=== PATIENT | male | born 1995 | race African-American/Black ===

== ENCOUNTER 2018-05-18 19:11 | Emergency (ER) | payer OTHER ==
[2018-05-18 19:34] VITALS: BP 158/99; PULSE 68; TEMP 97.9; BMI 48.1
--- NOTE | 2018-05-18 20:02 | PDOC ---
History of Present Illness - General Chief Complaint: Injury Stated Complaint: TOE INJURY Time Seen by Provider: 05/18/18 19:37 History Source: Patient Exam Limitations: Clinical Condition - History of Present Illness Initial Comments: 05/18/18 19:56 Patient with history of diabetes presenting with pain of pain to left big toe with complete evulsion of the toenail after dropping a couch on the toe 3 days ago. Patient reported he didn't come earlier because he had to something to do . he denies pain to toe today. Patient denied any other symptoms Timing/Duration: other (3 days) Past History - Past Medical History Allergies/Adverse Reactions: Allergies Allergy/AdvReac Type Severity Reaction Status Date / Time No Known Allergies Allergy Verified 04/15/18 19:08 Home Medications: Ambulatory Orders Amlodipine Besylate [Norvasc -] 5 mg PO DAILY #7 tablet 04/15/18 Mupirocin Ointment [Bactroban 2% Ointment -] 1 applic TP BID #1 tube 05/18/18 Sulfamethoxazole/Trimethoprim [Bactrim Ds -] 1 tab PO BID #14 tablet 05/18/18 COPD: No Diabetes: Yes HTN: Yes - Immunization History Immunization Up to Date: Yes - Suicide/Smoking/Psychosocial Hx Smoking Status: No Smoking History: Never smoked Have you smoked in the past 12 months: No Number of Cigarettes Smoked Daily: 0 Information on smoking cessation initiated: No Hx Alcohol Use: No Drug/Substance Use Hx: No Substance Use Type: None Review of Systems - Review of Systems Able to Perform ROS?: Yes Is the patient limited Swazi proficient: No Constitutional: No: Chills, Diaphoresis, Fever, Loss of Appetite, Malaise, Night Sweats, Weakness, Weight Stable, Unintentional Wgt. Loss, Unexplained wgt Loss, Other HEENTM: No: Eye Pain, Blurred Vision, Tearing, Recent change in vision, Double Vision, Cataracts, Ear Pain, Ocular Prothesis, Ear Discharge, Nose Pain, Nose Congestion, Tinnitus, Nose Bleeding, Hearing Loss, Throat Pain, Throat Swelling , Mouth Pain, Dental Problems, Difficulty Swallowing, Mouth Swelling, Other Respiratory: No: Cough, Orthopnea, Shortness of Breath, SOB with Exertion, SOB at Rest, Stridor, Wheezing, Productive cough, Hemoptysis, Other Cardiac (ROS): No: Chest Pain, Edema, Irregular Heart Rate, Lightheadedness, Palpitations, Syncope, Chest Tightness, Other ABD/GI: No: Abdominal Distended, Abd. Pain w/ defecation, Blood Streaked Bowels , Constipated, Diarrhea, Difficulty Swallowing, Nausea, Poor Appetite, Poor Fluid Intake, Rectal Bleeding, Vomiting, Indigestion, Abdominal cramping, Tarry Stools, Other Musculoskeletal: Yes: See HPI Integumentary: Yes: See HPI All Other Systems: Reviewed and Negative *Physical Exam - Vital Signs Last Vital Signs Temp Pulse Resp BP Pulse Ox 97.9 F 68 18 158/99 100 05/18/18 19:30 05/18/18 19:30 05/18/18 19:30 05/18/18 19:30 05/18/18 19:30 - Physical Exam Comments: 05/18/18 20:05 GENERAL: Well developed, well nourished. Awake and alert. No acute distress. HEENT: Normocephalic, atraumatic. PERRLA, EOMI. No conjunctival pallor. Sclera are non- icteric. Moist mucous membranes. Oropharynx is clear. NECK: Supple. Full ROM. No JVD. Carotid pulses 2+ and symmetric, without bruits. No thyromegaly. No lymphadenopathy. CARDIOVASCULAR: Regular rate and rhythm. No murmurs, rubs, or gallops. Distal pulses are 2+ and symmetric. PULMONARY: No evidence of respiratory distress. Lungs clear to auscultation bilaterally. No wheezing, rales or rhonchi. ABDOMINAL: Soft. Non-tender. Non-distended. No rebound or guarding. No organomegaly. Normoactive bowel sounds. MUSCULOSKELETAL Normal range of motion at all joints. No bony deformities or tenderness. No CVA tenderness. EXTREMITIES: No cyanosis. No clubbing. No edema. No calf tenderness. SKIN: complete avulsion of toenail of left big toe. No bleeding from sites and no drainage or erythema to site NEUROLOGICAL: Alert, awake, appropriate. Cranial nerves 2-12 intact. No deficits to light touch and temperature in face, upper extremities and lower extremities. No motor deficits in the in face, upper extremities and lower extremities. Normoreflexic in the upper and lower extremities. Normal speech. Toes are down- going bilaterally. Gait is normal without ataxia. PSYCHIATRIC: Cooperative. Good eye contact. Appropriate mood and affect. General Appearance: Yes: Nourished, Appropriately Dressed. No: Apparent Distress Medical Decision Making - Medical Decision Making 05/18/18 19:58 Patient presenting with complete evulsion of toenail of left big toe drop in the couch on the toe. no evidence of bleeding from toe or toenail. Patient moving to wound were no evidence of fracture on exam. Will defer x-ray given it would not change the management plan .wound cleaned with Betadine and bacitracin applied to wound. Wound covered with adhesive bandage .Patient will be discharged on outpatient treatment with antibiotics with podiatry follow-up 05/18/18 20:07 *DC/Admit/Observation/Transfer Diagnosis at time of Disposition: Toenail avulsion Qualifiers: Encounter type: initial encounter Qualified Code(s): S91.209A - Unspecified open wound of unspecified toe(s) with damage to nail, initial encounter - Discharge Dispostion Disposition: HOME Condition at time of disposition: Good Decision to Admit order: No - Prescriptions Prescriptions: Mupirocin Ointment [Bactroban 2% Ointment -] 1 applic TP BID #1 tube Sulfamethoxazole/Trimethoprim [Bactrim Ds -] 1 tab PO BID #14 tablet - Referrals Referrals: Castillo Alvarado MD [Staff Physician] - - Patient Instructions Printed Discharge Instructions: DI for Nail Avulsion Injury Additional Instructions: Take medications as prescribed. Apply topical cream twice a day to wound on the healed. Follow-up with podiatry - Post Discharge Activity
== END 2018-05-18 20:04 | disposition home or self-care (01) ==
LOC: JERFT 19:11
DX: S91.202A Unspecified open wound of left great toe with damage to nail, initial encounter (principal); W20.8XXA Other cause of strike by thrown, projected or falling object, initial encounter; Y93.89 Activity, other specified; Y92.038 Other place in apartment as the place of occurrence of the external cause; Y99.8 Other external cause status; I10 Essential (primary) hypertension; E10.9 Type 1 diabetes mellitus without complications
CPT/HCPCS: 99281-25

== ENCOUNTER 2019-08-10 15:21 | Emergency (ER) | payer OTHER ==
[2019-08-10 15:26] VITALS: BP 160/99; PULSE 98; TEMP 99
[2019-08-10 16:05] VITALS: BMI 45.6
--- NOTE | 2019-08-10 16:20 | PDOC ---
History of Present Illness - General Chief Complaint: Pain Stated Complaint: CHEST PAIN Time Seen by Provider: 08/10/19 15:30 History Source: Patient Exam Limitations: Clinical Condition - History of Present Illness Initial Comments: 08/10/19 16:13 Morbid obese patient with history of hypertension and diabetes noncompliant with medication for over a year now presents with parent with complaint of midsternal chest pain upon waking this morning. Patient RN report she was visiting patient today who lives with her brother and patient felt of as patient did not want to clean the house as he usually does. Patient's aunt reported she was unable to reach his brother so she brought the patient to the emergency room. Patient denies shortness of breath, palpitation, numbness or tingling sensation, nausea or vomiting. Denies dizziness, headache, blurred vision change in vision. Patient report he has not taken his diabetes or blood pressure medication in over a year. Patient is not sure of his own blood pressure medication but thinks he takes Tylenol for blood pressure control. He denies any other symptoms. Patient does not know patient's history and could not give history of patient's home medication Is this a multiple visit Asthma Patient?: No Timing/Duration: momentarily Past History - Past Medical History Allergies/Adverse Reactions: Allergies Allergy/AdvReac Type Severity Reaction Status Date / Time No Known Allergies Allergy Verified 08/10/19 15:26 Home Medications: Ambulatory Orders Amlodipine Besylate [Norvasc -] 5 mg PO DAILY #7 tablet 04/15/18 Mupirocin Ointment [Bactroban 2% Ointment -] 1 applic TP BID #1 tube 05/18/18 Sulfamethoxazole/Trimethoprim [Bactrim Ds -] 1 tab PO BID #14 tablet 05/18/18 COPD: No Diabetes: Yes HTN: Yes - Immunization History Immunization Up to Date: Yes - Psycho Social/Smoking Cessation Hx Smoking Status: No Smoking History: Never smoked Have you smoked in the past 12 months: No Number of Cigarettes Smoked Daily: 0 Hx Alcohol Use: No Drug/Substance Use Hx: No Substance Use Type: None Review of Systems - Review of Systems Able to Perform ROS?: Yes Is the patient limited Sammarinese proficient: No Constitutional: No: Chills, Fever, Weakness HEENTM: No: Symptoms Reported, See HPI, Eye Pain, Blurred Vision, Tearing, Recent change in vision, Double Vision, Cataracts, Ear Pain, Ocular Prothesis, Ear Discharge, Nose Pain, Nose Congestion, Tinnitus, Nose Bleeding, Hearing Loss , Throat Pain, Throat Swelling, Mouth Pain, Dental Problems, Difficulty Swallowing, Mouth Swelling, Other Respiratory: No: Symptoms reported, See HPI, Cough, Orthopnea, Shortness of Breath, SOB with Exertion, SOB at Rest, Stridor, Wheezing, Productive cough, Hemoptysis, Other Cardiac (ROS): Yes: Symptoms Reported, See HPI, Chest Pain (mid-sternum chest pain). No: Edema, Irregular Heart Rate, Lightheadedness, Palpitations, Syncope , Chest Tightness, Other ABD/GI: No: Nausea, Vomiting Neurological: No: Symptoms reported, Headache, Numbness, Paresthesia, Seizure, Tingling All Other Systems: Reviewed and Negative *Physical Exam - Vital Signs Last Vital Signs Temp Pulse Resp BP Pulse Ox 99.0 F 98 H 18 160/99 97 08/10/19 15:23 08/10/19 15:23 08/10/19 15:23 08/10/19 15:23 08/10/19 15:23 - Physical Exam Comments: 08/10/19 16:22 GENERAL: Well developed, well nourished. Awake and alert. Morbidly obese in no acute distress. HEENT: Normocephalic, atraumatic. PERRLA, EOMI. No conjunctival pallor. Sclera are non-icteric. Moist mucous membranes. Oropharynx is clear. NECK: Supple. Full ROM. CARDIOVASCULAR: Regular rate and rhythm. No murmurs, rubs, or gallops. Distal pulses are 2+ and symmetric. PULMONARY: No evidence of respiratory distress. Lungs clear to auscultation bilaterally. No wheezing, rales or rhonchi. ABDOMINAL: Soft. Non-tender. Non-distended. No rebound or guarding. No organomegaly. Normoactive bowel sounds. MUSCULOSKELETAL Normal range of motion at all joints. Mild reproducible upper midsternal subjective pain. EXTREMITIES: No cyanosis. No clubbing. No edema. No calf tenderness. SKIN: Warm and dry. Normal capillary refill. No rashes. No jaundice. NEUROLOGICAL: Alert, awake, appropriate. Gait is normal without ataxia. PSYCHIATRIC: Cooperative. Good eye contact. Appropriate mood General Appearance: Yes: Nourished, Appropriately Dressed. No: Apparent Distress ED Treatment Course - LABORATORY CBC & Chemistry Diagram: 08/10/19 16:30 08/10/19 16:30 - RADIOLOGY Radiology Studies Ordered: Category Date Time Status CHEST PA & LAT [RAD] Stat Radiology 08/10/19 15:52 Ordered Medical Decision Making - Medical Decision Making 08/10/19 16:20 Morbid obese patient with history of hypertension and diabetes noncompliant with medication for over a year now presents with parent with complaint of midsternal chest pain upon waking this morning. Patient RN report she was visiting patient today who lives with her brother and patient felt of as patient did not want to clean the house as he usually does. Patient's aunt reported she was unable to reach his brother so she brought the patient to the emergency room. Patient denies shortness of breath, palpitation, numbness or tingling sensation, nausea or vomiting. Denies dizziness, headache, blurred vision change in vision. Patient report he has not taken his diabetes or blood pressure medication in over a year. Patient is not sure of his own blood pressure medication but thinks he takes Tylenol for blood pressure control. He denies any other symptoms. Patient does not know patient's history and could not give history of patient's home medication Exam significant for morbidly obese patient in no acute distress. Mild subjective midsternal chest pain on exam. Normal cardiac exam. Lungs clear to auscultation bilateral. EKG shows normal sinus rhythm. Given patient being a poor historian, will do cardiac profile and basic lab with chest x-ray to rule out acute chest pathology 08/10/19 17:01 Chest x-ray shows no acute infiltrate or pathology. CBC normal. Cardiac profile negative. Patient symptoms likely costochondritis and stable for discharge to take Motrin as needed for pain. Patient advised to follow-up with PCP for blood pressure and diabetes control. Referral given to internal medicine for follow-up and advised patient on importance of medication compliance with her diabetes and blood pressure. 08/10/19 17:07 Patient is asymptomatic and stable for discharge Discharge - Discharge Information Problems reviewed: Yes Clinical Impression/Diagnosis: Costochondral chest pain, Essential hypertension, Morbid obesity Condition: Stable Disposition: HOME - Admission No - Follow up/Referral Referrals: Hayden Banegas MD [Staff Physician] - - Patient Discharge Instructions Additional Instructions: Your EKG, chest x-ray and labs is normal. Your symptoms likely caused by muscle pain. Follow-up referred to internal medicine for management of the blood pressure and diabetes. It is very important that you get your blood pressure under control and also your weight down as it will affect your health if not manage. - Post Discharge Activity
[2019-08-10 16:38] LABS: EOS % 1.1 % (0-4.5); HEMATOCRIT 39.3 % (35.4-49); HEMOGLOBIN 13.2 GM/dL (11.7-16.9); LYMPH % 32.7 % (8-40); MCH 25.7 pg (25.7-33.7); MCHC 33.5 g/dl (32.0-35.9); MEAN CELL VOLUME 76.8 fl (80-96); MEAN PLT VOLUME 8.7 fl (7.5-11.1); NEUT % 54.2 % (42.8-82.8); PLATELET COUNT 287 K/MM3 (134-434); RBC 5.12 M/mm3 (4.00-5.60); RDW 14.2 % (11.9-15.9)
[2019-08-10 17:07] LABS: ALBUMIN 3.8 g/dl (3.4-5.0); ALK PHOS 58 U/L (45-117); ANION GAP 6 MMOL/L (8-16); BILIRUBIN,TOTAL 0.4 mg/dL (0.2-1); BLOOD UREA NITROGEN 15.6 mg/dL (7-18); CALCIUM 9.2 mg/dL (8.5-10.1); CHLORIDE 107 mmol/L (98-107); CO2 28 mmol/L (21-32); CREATININE 1.1 mg/dL (0.55-1.3); GLUCOSE,RANDOM 127 mg/dL (74-106); SGOT/AST 15 U/L (15-37); SGPT/ALT 24 U/L (13-61); SODIUM 141 mmol/L (136-145)
--- NOTE | 2019-08-11 12:56 | EKG ---
Test Reason : Blood Pressure : / mmHG Vent. Rate : 079 BPM Atrial Rate : 079 BPM P-R Int : 150 ms QRS Dur : 096 ms QT Int : 358 ms P-R-T Axes : 069 062 049 degrees QTc Int : 410 ms NORMAL SINUS RHYTHM NORMAL ECG WHEN COMPARED WITH ECG OF 10-AUG-2019 15:49, NO SIGNIFICANT CHANGE WAS FOUND Confirmed by PATRICK REYES MD ([id number]) on 08/11/2019 12:55:45 PM Referred By: Confirmed By:PATRICK REYES MD
== END 2019-08-10 17:20 | disposition home or self-care (01) ==
LOC: JER 15:21 → JERFT 15:21
DX: M94.0 Chondrocostal junction syndrome [Tietze] (principal); I10 Essential (primary) hypertension; E11.9 Type 2 diabetes mellitus without complications; Z91.14 Patient's other noncompliance with medication regimen; E66.01 Morbid (severe) obesity due to excess calories; Z68.42 Body mass index [BMI] 45.0-49.9, adult
CPT/HCPCS: 36415; 71046-TC-FY; 80053; 82550; 84484; 85025; 93005; 93010; 99282-25